=== PATIENT | female | born 1995 | race Caucasian/White ===

== ENCOUNTER 2024-03-14 07:38 | Day surgery (SDC) | payer OTHER ==
[2024-03-14] MEDS ORDERED: Acetaminophen 500 MG TAB ONE (07:50)
[2024-03-14] MEDS ORDERED: Acetaminophen 500 MG TAB PO SCH (08:00)
[2024-03-14] MEDS ORDERED: Iron Sucrose Complex 250 MG in Sodium Chloride 0.9% 250 ML 250 ML IVPB SCH (08:00)
== END 2024-03-14 13:00 | disposition home or self-care (01) ==
LOC: CSHSDC 07:38
PROVIDERS: ATTEND Student in an Organized Health Care Education/Training Program
DX: O99.019 Anemia complicating pregnancy, unspecified trimester (principal); Z3A.00 Weeks of gestation of pregnancy not specified
CPT/HCPCS: J1756; J7050

== ENCOUNTER 2024-03-28 19:30 | Inpatient (IN) | payer OTHER ==
[~2024-03-28 19:30] MED LIST: Bupivacaine 0.25% HCL 30 ML VIAL ONE
[2024-03-28] MEDS ORDERED: Promethazine HCl 25 MG/ML VIAL IM PRN (20:19)
[2024-03-28] MEDS ORDERED: Ondansetron PF 4 MG/2 ML Vial IVP PRN (20:19)
[2024-03-28] MEDS ORDERED: Ibuprofen 800 MG TAB PO PRN (20:19)
[2024-03-28] MEDS ORDERED: Butorphanol Tartrate 1 MG/ML VIAL SLOW IVP PRN (20:19)
[2024-03-28] MEDS ORDERED: Methylergonovine 0.2 MG/ML VIAL IM PRN (20:19)
[2024-03-28] MEDS ORDERED: Tranexamic Acid 1,000 MG/10 ML VIAL IVP PRN (20:19)
[2024-03-28] MEDS ORDERED: Misoprostol 200 MCG TAB PR PRN (20:19)
[2024-03-28] MEDS ORDERED: hydrALAZINE 20 MG/ML VIAL SLOW IVP PRN (20:19)
[2024-03-28] MEDS ORDERED: Acetaminophen 500 MG TAB PO PRN (20:19)
[2024-03-28] MEDS ORDERED: Carboprost 250 MCG/ML AMP IM PRN (20:19)
[2024-03-28] MEDS ORDERED: Diphenoxylate HCl/Atropine Tablet PO PRN (20:19)
[2024-03-28] MEDS ORDERED: Lidocaine 1% (PF) 30 ML VIAL SC PRN (20:19)
[2024-03-28] MEDS ORDERED: Oxytocin 30 units/NS 500 ML 500 ML IV SCH (20:30)
[2024-03-28 20:44] VITALS: BMI 29.6
[2024-03-28] MEDS: Lactated Ringer's 1,000 ML IV SCH (21:30)
[2024-03-28 21:56] LABS: Hematocrit 28.4 % (34.9-44.5); Hemoglobin 9.4 g/dL (12.0-15.5); Mean Corpuscular HGB CONC 33.1 g/dL (32.0-36.0); Mean Corpuscular Hemoglobin 29.6 pg (27.0-33.0); Mean Corpuscular Volume 89.3 fL (81.6-98.3); Mean Platelet Volume 11.7 fL (7.4-10.4); Platelet Count 208 10x3/uL (150-450); RBC Distribution Width 19.7 % (11.5-14.5); Red Blood Cell (RBC) Count 3.18 10x6/uL (3.90-5.03); White Blood Cell (WBC) Count 10.1 10x3/uL (3.5-10.5)
[2024-03-28] MEDS: Misoprostol 100 MCG TAB VAG SCH (22:06)
[2024-03-28 23:40] LABS: Syphilis Antibody Nonreactive (Nonreactive); Syphilis Antibody Index 0.05 S/CO (<1.00 Non-Reactive)
[2024-03-28 23:41] LABS: Hep B Surf Ag - L&D Non-Reactive S/CO (NonReactive)
[2024-03-29] MEDS ORDERED: Fentanyl 100 MCG/2 ML VIAL SLOW IVP PRN (00:37)
[2024-03-29] MEDS: fentaNYL 50 mcg/mL 1 mL Vial SLOW IVP PRN (00:48)
[2024-03-29] MEDS: fentaNYL/Ropivacaine Epidural 100 ML ONE (02:19)
[2024-03-29] MEDS ORDERED: Lactated Ringer's 500 ML IV PRN (02:21)
[2024-03-29] MEDS ORDERED: diphenhydrAMINE 50 MG/ML VIAL IVP PRN ×2 (02:21→13:44)
[2024-03-29] MEDS ORDERED: Ondansetron PF 4 MG/2 ML Vial IVP PRN ×4 (02:21→17:23)
[2024-03-29] MEDS ORDERED: Promethazine HCl 25 MG/ML VIAL IM PRN ×2 (02:21→13:44)
[2024-03-29] MEDS ORDERED: ePHEDrine Sulfate 50 MG/10 ML VIAL SLOW IVP PRN (02:21)
[2024-03-29] MEDS ORDERED: Naloxone HCl 0.4 mg/ml Vial IVP PRN ×4 (02:21→13:44)
[2024-03-29] MEDS ORDERED: Moisturizing Cream (Eucerin) 113 GM JAR TOP PRN ×2 (02:21→13:44)
[2024-03-29] MEDS ORDERED: Communication Order-Pharmacy FS SCH ×2 (02:30→13:45)
[2024-03-29] MEDS: Ondansetron PF 4 MG/2 ML Vial ONE (07:20)
[2024-03-29] MEDS: fentaNYL 2 mcg/Ropivacaine 0.2% Epidural 100 ML CADD EPIDURAL SCH (11:25)
[2024-03-29] MEDS ORDERED: Ketorolac Tromethamine 30 MG (1 mL) VIAL IVP PRN (13:44)
[2024-03-29] MEDS ORDERED: fentaNYL 50 mcg/mL 1 mL Vial SLOW IVP PRN (13:44)
[2024-03-29] MEDS ORDERED: Naloxone HCl 0.4 mg/ml Vial IV PRN (13:44)
[2024-03-29] MEDS ORDERED: Ketorolac Tromethamine 30 MG (1 mL) VIAL IVP SCH (13:45)
[2024-03-29] MEDS: Meperidine HCl/PF 25 MG (1 mL) VIAL SLOW IVP PRN (15:35)
[2024-03-29] MEDS ORDERED: hydrALAZINE 20 MG/ML VIAL SLOW IVP PRN (17:23)
[2024-03-29] MEDS ORDERED: Lanolin Ointment 7 GM TUBE TOP PRN (17:23)
[2024-03-29] MEDS ORDERED: Oxytocin 30 units/NS 500 ML 500 ML IV SCH (17:23)
[2024-03-29] MEDS ORDERED: Methylergonovine 0.2 MG/ML VIAL IM PRN (17:23)
[2024-03-29] MEDS ORDERED: Misoprostol 200 MCG TAB PR PRN (17:23)
[2024-03-29] MEDS ORDERED: Bisacodyl 10 MG SUPP PR PRN (17:23)
[2024-03-29] MEDS: Oxytocin 10 UNITS/ML VIAL ONE (17:34)
[2024-03-29] MEDS: Chloroprocaine 3% PF 20 ML VIAL ONE (17:34)
[2024-03-29] MEDS: Dexamethasone 4 mg/ml Vial ONE (17:34)
[2024-03-29] MEDS: Morphine PF 10 MG/10 ML VIAL ONE (17:34)
[2024-03-29] MEDS: fentaNYL 50 mcg/mL 1 mL Vial ONE ×2 (17:34→17:35)
[2024-03-29] MEDS: Ketorolac Tromethamine 30 MG (1 mL) VIAL ONE (17:34)
[2024-03-29] MEDS: PHENYLEPHRINE-NS 100 MCG/ML 10 ML SYRINGE ONE (17:34)
[2024-03-29] MEDS: Azithromycin 500 MG VIAL ONE (17:35)
[2024-03-29] MEDS: Lidocaine 1% (PF) 30 ML VIAL ONE (17:35)
[2024-03-29] MEDS: Boostrix 0.5 ML (Tdap) VIAL (>/=7 yrs of age) IM ONE (17:35)
[2024-03-29] MEDS: Midazolam HCl 2 mg/2 ml Vial ONE (17:35)
[2024-03-29] MEDS: CEFAZOLIN 2 GM VIAL ONE (17:35)
[2024-03-29] MEDS: Ibuprofen 800 MG TAB PO SCH (17:35)
[2024-03-29] MEDS: Acetaminophen 500 MG TAB PO SCH (17:38)
[2024-03-29] MEDS: Ketorolac Tromethamine 30 MG (1 mL) VIAL IVP PRN (19:55)
[2024-03-29] MEDS: Docusate 100 MG CAP PO SCH (19:56)
[2024-03-29] MEDS: Ferrous Sulfate 325 MG TAB PO SCH (19:56)
[2024-03-30] MEDS: HYDROcodone/Acetaminophen 5/325 mg Tablet PO PRN (02:03)
[2024-03-30 04:28] LABS: Hematocrit 23.5 % (34.9-44.5); Hemoglobin 7.6 g/dL (12.0-15.5); Mean Corpuscular HGB CONC 32.3 g/dL (32.0-36.0); Mean Corpuscular Hemoglobin 29.3 pg (27.0-33.0); Mean Corpuscular Volume 90.7 fL (81.6-98.3); Mean Platelet Volume 11.3 fL (7.4-10.4); Platelet Count 182 10x3/uL (150-450); RBC Distribution Width 19.9 % (11.5-14.5); Red Blood Cell (RBC) Count 2.59 10x6/uL (3.90-5.03); White Blood Cell (WBC) Count 18.7 10x3/uL (3.5-10.5)
[2024-03-30] MEDS: Prenatal Vitamin 1 TAB PO SCH (08:14)
[2024-03-30] MEDS: Iron Sucrose Complex 200 MG in Sodium Chloride 0.9% 100 ML IVPB SCH (12:24)
[2024-03-30] MEDS: Acetaminophen 325 MG TAB PO PRN (12:27)
[2024-03-30] MEDS: Simethicone Chewable 80 MG TAB PO PRN (12:28)
[2024-03-30] MEDS: Ibuprofen 800 MG TAB PO SCH (17:35)
[2024-03-31 04:34] LABS: Hematocrit 22.9 % (34.9-44.5); Hemoglobin 7.1 g/dL (12.0-15.5); Mean Corpuscular Hemoglobin 28.7 pg (27.0-33.0); Mean Corpuscular Volume 92.7 fL (81.6-98.3); Mean Platelet Volume 11.2 fL (7.4-10.4); Platelet Count 196 10x3/uL (150-450); RBC Distribution Width 20.5 % (11.5-14.5); Red Blood Cell (RBC) Count 2.47 10x6/uL (3.90-5.03); White Blood Cell (WBC) Count 11.9 10x3/uL (3.5-10.5)
[2024-03-31] MEDS ORDERED: HYDROcodone/Acetaminophen 5/325 mg Tablet PO PRN (08:10)
[2024-03-31] MEDS ORDERED: Iron Sucrose Complex 200 MG in Sodium Chloride 0.9% 100 ML IVPB SCH ×2 (09:00→10:00)
[2024-03-31] MEDS: HYDROcodone/Acetaminophen 10/325 mg Tablet PO PRN (09:40)
[2024-03-31] MEDS: Iron Sucrose Complex 200 MG in Sodium Chloride 0.9% 100 ML IVPB SCH (10:15)
[2024-04-01 07:29] LABS: Hematocrit 22.5 % (34.9-44.5); Mean Corpuscular HGB CONC 31.1 g/dL (32.0-36.0); Mean Corpuscular Hemoglobin 29.2 pg (27.0-33.0); Mean Corpuscular Volume 93.8 fL (81.6-98.3); Mean Platelet Volume 10.8 fL (7.4-10.4); Platelet Count 222 10x3/uL (150-450); RBC Distribution Width 20.5 % (11.5-14.5)
[2024-04-01 13:34] VITALS: BP 120/70; TEMP 98.1
== END 2024-04-01 13:30 | disposition home or self-care (01) | DRG 787 ==
LOC: CSHLD 20:03 → CSHPP 03-29 17:01
PROVIDERS: ADMIT Family Medicine; ATTEND Family Medicine
PROC: 10D00Z1 Extraction of Products of Conception, Low, Open Approach (ICD-10-PCS; principal; 2024-03-29)
PROC: 10H07YZ Insertion of Other Device into Products of Conception, Via Natural or Artificial Opening (ICD-10-PCS; 2024-03-29)
DX: O48.0 Post-term pregnancy (principal); D62 Acute posthemorrhagic anemia; O76 Abnormality in fetal heart rate and rhythm complicating labor and delivery; O99.02 Anemia complicating childbirth; O64.0XX0 Obstructed labor due to incomplete rotation of fetal head, not applicable or unspecified; D50.9 Iron deficiency anemia, unspecified; Z3A.40 40 weeks gestation of pregnancy; Z37.0 Single live birth
CPT/HCPCS: 36415; 51702; 85027; 86780; 86850; 86900; 86901; 87340; J0665; J1100; J1756; J1885; J2001; J2175; J2250; J2274; J2401; J2405; J2590; J3010; J3490; J7120